=== PATIENT | male | born 1965 | race Caucasian/White ===

== ENCOUNTER 2020-01-01 01:40 | Emergency (ER) | payer BC, OTHER ==
[2020-01-01 01:48] VITALS: BP 195/106; PULSE 80; TEMP 97.4; BMI 34.4
[2020-01-01] MEDS ORDERED: KETOROLAC TROMETHAMINE 60 MG/2 ML VIAL ONE (01:51)
[2020-01-01] MEDS ORDERED: CYCLOBENZAPRINE HCL 10 MG TABLET (FP) ONE (01:52)
[2020-01-01] MEDS ORDERED: KETOROLAC TROMETHAMINE 60 MG/2 ML VIAL IM ONE (01:54)
[2020-01-01] MEDS ORDERED: CYCLOBENZAPRINE HCL 10 MG TABLET (FP) PO ONE (01:54)
--- NOTE | 2020-01-01 01:57 | PDOC ---
History of Present Illness - General Chief Complaint: Pain, Acute Stated Complaint: REOCCURANCE OF BACK PAIN Time Seen by Provider: 01/01/20 01:49 History Source: Patient Exam Limitations: No Limitations - History of Present Illness Initial Comments: 01/01/20 01:51 This is a 54-year-old male who comes in complaining of pain in his mid back area. Patient said he had shingles there approximately 14 years ago ago. And intermittently gets pain there. Patient otherwise denies any trauma or injury. Patient denies any numbness or or tingling of his extremities. Patient denies any other complaints. Allergies: as per nursing notes Past Medical History: none Social history: Lives with family. No smoking. No alcohol. No illicit drugs. Surgical history: None General: No fevers or chills, no weakness, no weight loss HEENT: No change in vision. No sore throat,. No ear pain CardioVascular: no chest discomfort. No shortness of breath Respiratory:No cough, or wheezing. Gastrointestinal: no nausea, vomiting, diarrhea or constipation, No rectal bleeding Genitourinary: No dysuria, hematuria, or frequency Musculoskeletal: No joint or muscle pain or swelling BACK: Pain as per HPI in the back Neurologic: No headache, vertigo, dizziness or loss of consciousness Psychiatric: nor depression Skin: No rashes or easy bruising Endocrine: no increased thirst or abnormal weight change Allergic: no skin or latex allergy All other systems reviewed and normal \ GENERAL: The patient is awake, alert, and fully oriented, in no acute distress. HEENT:Head is normal with no signs of trauma. Eyes: Pupils equal, round and reactive to light, Ears, and Throat are normal. Neck is supple. No Lymphadenopathy. BACK there is no thoracic lumbar or sacral tenderness on palpation. There is some left-sided muscle spasm in the area of the pain. Neurovascular is intact EXTREMITIES:atraumatic, Normal range of motion, no edema. NEUROLOGICAL: Normal speech, normal gait. PSYCH: Normal mood, normal affect. SKIN: Warm, Dry, normal turgor, no rashes or lesions noted. 01/01/20 01:56 Assessment and plan: This is a 54-year-old male lower back pain that is been intermittent Past History - Past Medical History Allergies/Adverse Reactions: Allergies Allergy/AdvReac Type Severity Reaction Status Date / Time No Known Allergies Allergy Verified 01/01/20 01:41 Home Medications: Ambulatory Orders Naproxen [Naprosyn -] 500 mg PO BID #14 tablet 01/01/20 COPD: No - Psycho Social/Smoking Cessation Hx Smoking History: Never smoked Have you smoked in the past 12 months: No Number of Cigarettes Smoked Daily: 0 Information on smoking cessation initiated: No Hx Alcohol Use: Yes (SOCIAL) Drug/Substance Use Hx: Yes (MEDICAL MARIJUANA) Substance Use Type: None *Physical Exam - Vital Signs Last Vital Signs Temp Pulse Resp BP Pulse Ox 97.4 F L 80 18 195/106 H 100 01/01/20 01:43 01/01/20 01:43 01/01/20 01:43 01/01/20 01:43 01/01/20 01:43 Discharge - Discharge Information Problems reviewed: Yes Clinical Impression/Diagnosis: Mid back pain Condition: Stable Disposition: HOME - Admission No - Follow up/Referral Referrals: Azam Orta [Primary Care Provider] - - Patient Discharge Instructions Additional Instructions: For the pain take naproxen 1 tablet twice a day. In addition to the naproxen take Flexeril 1 tablet as often as 3 times a day the Flexeril might make you drowsy so try to limit it to the nighttime hours if possible. Return to the emergency department immediately with ANY new, persistent or worsening symptoms. Continue any medications as previously prescribed by your physician. You should follow up with your primary doctor as soon as possible regarding today's emergency department visit. . Please make sure your doctor reviews the results of your emergency evaluation. Thank you for coming to the Emergency Department today for your care. It was a pleasure to see you today. Please note that your evaluation is INCOMPLETE until you follow-up with your doctor. - Post Discharge Activity
== END 2020-01-01 02:04 | disposition home or self-care (01) ==
LOC: FER 01:40
PROC: 3E0233Z Introduction of Anti-inflammatory into Muscle, Percutaneous Approach (ICD-10-PCS; principal; 2020-01-01)
DX: M54.6 Pain in thoracic spine (principal)
CPT/HCPCS: 99284-25